=== PATIENT | female | born 1975 | race Caucasian/White ===

== ENCOUNTER 2017-08-19 13:30 | Emergency (ER) | payer MEDICARE, MEDICAID ==
[~2017-08-19] VITALS: Ht 167.6 cm; Wt 64.1 kg
[2017-08-19 13:33] VITALS: BP 122/74
[2017-08-19] MEDS ORDERED: BACITRACIN ZINC OINT 500U/GM, 0.9 GM ONE (14:17)
== END 2017-08-19 14:25 | disposition home or self-care (01) ==
LOC: ED 14:00
DX: Z76.0 Encounter for issue of repeat prescription (principal); G40.309 Generalized idiopathic epilepsy and epileptic syndromes, not intractable, without status epilepticus; F31.9 Bipolar disorder, unspecified; J45.30 Mild persistent asthma, uncomplicated; I10 Essential (primary) hypertension; E11.9 Type 2 diabetes mellitus without complications
CPT/HCPCS: 99283